=== PATIENT | female | born 1930 | race Two or more races ===

== ENCOUNTER 2018-11-21 22:29 | Emergency (ER) | payer MEDICARE ==
[2018-11-21 22:37] VITALS: TEMP 97.3
--- NOTE | 2018-11-21 22:52 | ED ---
SOB HPI - General Chief Complaint: Shortness of Breath Stated Complaint: FRANCINE Time Seen by Provider: 11/21/18 22:50 Source: patient, family, RN notes reviewed, old records reviewed Mode of arrival: ambulatory Limitations: no limitations - History of Present Illness Initial Comments: This is an 88-year-old female the ER for evaluation. Patient is a for e valuation shortness of breath. Patient has a prolonged history of smoking but denies formal diagnosis of COPD. Patient has no recent travel history or sick contacts no fevers does have increased cough or congestion, patient does say she can't catch her breath with persistent cough. No chest pain currently. No prior hospital admissions or similar evaluations for shortness of breath. No recent travel or sick to his travel history or sick contacts no swelling of lower extremities MD Complaint: shortness of breath, cough -: days(s) Severity: moderate Severity scale (1-10): 4 Quality: dull Consistency: constant Improves With: nothing Known History Of: COPD, asthma Context: recent URI Associated Symptoms: cough Treatments Prior to Arrival: none - Related Data Home Medications Medication Instructions Recorded Confirmed Aricept(Unknown Dose) 1 tab PO DAILY 11/21/18 11/21/18 Naproxen Sodium [Aleve] 220 mg PO BID 11/21/18 11/21/18 Previous Rx's Medication Instructions Recorded Albuterol Sulfate [Proair Hfa] 1 - 2 puff INHALATION Q4H PRN #1 11/22/18 inhaler Azithromycin [Zithromax] 500 mg PO DAILY #5 tab 11/22/18 predniSONE 50 mg PO DAILY #5 tab 11/22/18 Allergies Allergy/AdvReac Type Severity Reaction Status Date / Time No Known Allergies Allergy Unverified 11/21/18 23:02 Review of Systems ROS Statement: Those systems with pertinent positive or pertinent negative responses have been documented in the HPI. ROS Other: All systems not noted in ROS Statement are negative. Past Medical History Past Medical History: No Reported History Additional Past Medical History / Comment(s): dementia Past Surgical History: No Surgical Hx Reported Smoking Status: Never smoker Past Alcohol Use History: Occasional Past Drug Use History: None Reported General Exam Limitations: no limitations General appearance: alert, in no apparent distress Head exam: Present: atraumatic, normocephalic, normal inspection Eye exam: Present: normal appearance, PERRL, EOMI. Absent: scleral icterus, conjunctival injection, periorbital swelling ENT exam: Present: normal exam, mucous membranes moist Neck exam: Present: normal inspection. Absent: tenderness, meningismus, lymphadenopathy Respiratory exam: Present: rales, rhonchi, accessory muscle use, decreased breath sounds, prolonged expiratory. Absent: respiratory distress, wheezes, stridor Cardiovascular Exam: Present: normal rhythm, tachycardia, normal heart sounds. Absent: systolic murmur, diastolic murmur, rubs, gallop, clicks GI/Abdominal exam: Present: soft, normal bowel sounds. Absent: distended, tenderness, guarding, rebound, rigid Extremities exam: Present: normal inspection, full ROM, normal capillary refill. Absent: tenderness, pedal edema, joint swelling, calf tenderness Back exam: Present: normal inspection Neurological exam: Present: alert, oriented X3, CN II-XII intact Psychiatric exam: Present: normal affect, normal mood Skin exam: Present: warm, dry, intact, normal color. Absent: rash Course Vital Signs 11/21/18 11/21/18 11/21/18 22:34 23:08 23:22 Temperature 97.3 F L Pulse Rate 101 H 86 88 Respiratory 16 Rate Blood Pressure 213/93 O2 Sat by Pulse 92 L Oximetry 11/21/18 11/22/18 23:31 00:37 Temperature Pulse Rate 93 90 Respiratory 24 18 Rate Blood Pressure 144/66 129/73 O2 Sat by Pulse 99 99 Oximetry - Reevaluation(s) Reevaluation #1: 11/22/18 00:43 Medical records reviewed Reevaluation #2: 11/22/18 00:43 Patient's states her symptoms are completely resolved, she feels better like to be discharged home Reevaluation #3: 11/22/18 00:43 Patient did pass ambulatory pulse ox testing Medical Decision Making - Medical Decision Making 88 female the ER for evaluation shortness of breath cough and congestion likely underlying COPD no no formal diagnosis. Patient will be placed on antibiotics to cover for pneumonia steroids and given an inhaler to follow-up with primary care tomorrow, patient does not want hospital admission currently - Lab Data Result diagrams: 11/21/18 22:54 11/21/18 22:54 Lab Results 11/21/18 11/21/18 11/21/18 Range/Units 22:54 22:54 22:54 WBC 5.0 (3.8-10.6) k/uL RBC 3.27 L (3.80-5.40) m/uL Hgb 9.5 L (11.4-16.0) gm/dL Hct 31.2 L (34.0-46.0) % MCV 95.4 (80.0-100.0) fL MCH 29.0 (25.0-35.0) pg MCHC 30.4 L (31.0-37.0) g/dL RDW 15.6 H (11.5-15.5) % Plt Count 242 (150-450) k/uL Neutrophils % 67 % Lymphocytes % 17 % Monocytes % 7 % Eosinophils % 8 % Basophils % 0 % Neutrophils # 3.4 (1.3-7.7) k/uL Lymphocytes # 0.9 L (1.0-4.8) k/uL Monocytes # 0.3 (0-1.0) k/uL Eosinophils # 0.4 (0-0.7) k/uL Basophils # 0.0 (0-0.2) k/uL Hypochromasia Moderate PT (9.0-12.0) sec INR (<1.2) APTT (22.0-30.0) sec Sodium 143 (137-145) mmol/L Potassium 3.5 (3.5-5.1) mmol/L Chloride 107 (98-107) mmol/L Carbon Dioxide 27 (22-30) mmol/L Anion Gap 9 mmol/L BUN 21 H (7-17) mg/dL Creatinine 0.64 (0.52-1.04) mg/dL Est GFR (CKD-EPI)AfAm >90 (>60 ml/min/1.73 sqM) Est GFR (CKD-EPI)NonAf 81 (>60 ml/min/1.73 sqM) Glucose 193 H (74-99) mg/dL Calcium 9.1 (8.4-10.2) mg/dL Magnesium 1.9 (1.6-2.3) mg/dL Total Bilirubin 0.8 (0.2-1.3) mg/dL AST 14 (14-36) U/L ALT 14 (9-52) U/L Alkaline Phosphatase 101 (38-126) U/L Creatine Kinase <20 L (30-135) U/L Troponin I (0.000-0.034) ng/mL NT-Pro-B Natriuret Pep 546 pg/mL Total Protein 7.3 (6.3-8.2) g/dL Albumin 4.1 (3.5-5.0) g/dL 11/21/18 11/21/18 Range/Units 22:54 22:54 WBC (3.8-10.6) k/uL RBC (3.80-5.40) m/uL Hgb (11.4-16.0) gm/dL Hct (34.0-46.0) % MCV (80.0-100.0) fL MCH (25.0-35.0) pg MCHC (31.0-37.0) g/dL RDW (11.5-15.5) % Plt Count (150-450) k/uL Neutrophils % % Lymphocytes % % Monocytes % % Eosinophils % % Basophils % % Neutrophils # (1.3-7.7) k/uL Lymphocytes # (1.0-4.8) k/uL Monocytes # (0-1.0) k/uL Eosinophils # (0-0.7) k/uL Basophils # (0-0.2) k/uL Hypochromasia PT 10.2 (9.0-12.0) sec INR 0.9 (<1.2) APTT 24.9 (22.0-30.0) sec Sodium (137-145) mmol/L Potassium (3.5-5.1) mmol/L Chloride (98-107) mmol/L Carbon Dioxide (22-30) mmol/L Anion Gap mmol/L BUN (7-17) mg/dL Creatinine (0.52-1.04) mg/dL Est GFR (CKD-EPI)AfAm (>60 ml/min/1.73 sqM) Est GFR (CKD-EPI)NonAf (>60 ml/min/1.73 sqM) Glucose (74-99) mg/dL Calcium (8.4-10.2) mg/dL Magnesium (1.6-2.3) mg/dL Total Bilirubin (0.2-1.3) mg/dL AST (14-36) U/L ALT (9-52) U/L Alkaline Phosphatase (38-126) U/L Creatine Kinase (30-135) U/L Troponin I <0.012 (0.000-0.034) ng/mL NT-Pro-B Natriuret Pep pg/mL Total Protein (6.3-8.2) g/dL Albumin (3.5-5.0) g/dL - EKG Data -: EKG Interpreted by Me (EKG shows sinus rhythm rate of 95, FL 160, QRS 72, QTc 439) - Radiology Data Radiology results: report reviewed (Chest x-ray shows probable developing infiltrate), image reviewed Disposition Clinical Impression: Acute exacerbation of chronic obstructive airways disease, Acute bronchitis Disposition: HOME SELF-CARE Condition: Good Instructions (If sedation given, give patient instructions): Acute Bronchitis (ED) Prescriptions: predniSONE 50 mg PO DAILY #5 tab Albuterol Sulfate [Proair Hfa] 1 - 2 puff INHALATION Q4H PRN #1 inhaler PRN Reason: Shortness Of Breath Azithromycin [Zithromax] 500 mg PO DAILY #5 tab Is patient prescribed a controlled substance at d/c from ED?: No Referrals: Ham Srinivasan MD [Primary Care Provider] - 1-2 days
[2018-11-21] MEDS ORDERED: AZITHROMYCIN 500 MG in SODIUM CHLORIDE 0.9% 250 ML IVPB STA (22:55)
[2018-11-21] MEDS ORDERED: methylPREDNISolone SOD SUCCI 125 MG/2 ML VIAL IV STA (22:55)
[2018-11-21] MEDS ORDERED: IPRATROPIUM-ALBUTEROL 3 ML NEB INHALATION STA (22:55)
[2018-11-21] MEDS ORDERED: ENALAPRILAT 1.25 MG/ML 1 ML VIAL IVP STA (23:01)
[2018-11-21 23:25] LABS: Basophils % (A) 0 %; Eosinophils # (A) 0.4 k/uL (0-0.7); Eosinophils % (A) 8 %; HCT 31.2 % (34.0-46.0); HGB 9.5 gm/dL (11.4-16.0); Hypochromasia Moderate; Lymphocytes # (A) 0.9 k/uL (1.0-4.8); Lymphocytes % (A) 17 %; MCHC 30.4 g/dL (31.0-37.0); MCV 95.4 fL (80.0-100.0); Mean Platelet Volume 7.2; Monocytes # (A) 0.3 k/uL (0-1.0); Monocytes % (A) 7 %; Neutrophils # (A) 3.4 k/uL (1.3-7.7); Neutrophils % (A) 67 %; Platelet Count 242 k/uL (150-450); RBC 3.27 m/uL (3.80-5.40); RDW 15.6 % (11.5-15.5)
[2018-11-21 23:34] LABS: ALT 14 U/L (9-52); AST 14 U/L (14-36); African American GFR (CKD) >90 (>60 ml/min/1.73 sqM); Albumin 4.1 g/dL (3.5-5.0); Alkaline Phosphatase 101 U/L (38-126); Anion Gap 9 mmol/L; Blood Urea Nitrogen 21 mg/dL (7-17); Calcium 9.1 mg/dL (8.4-10.2); Carbon Dioxide 27 mmol/L (22-30); Chloride 107 mmol/L (98-107); Creatine Kinase <20 U/L (30-135); Glucose 193 mg/dL (74-99); Magnesium 1.9 mg/dL (1.6-2.3); Potassium 3.5 mmol/L (3.5-5.1); Sodium 143 mmol/L (137-145); Total Bilirubin 0.8 mg/dL (0.2-1.3); Total Protein 7.3 g/dL (6.3-8.2)
[2018-11-21 23:36] LABS: INR 0.9 (<1.2); Partial Thromboplastin Time 24.9 sec (22.0-30.0); Prothrombin Time 10.2 sec (9.0-12.0)
--- NOTE | 2018-11-22 00:07 | XR ---
EXAM: XR Chest, 1 View CLINICAL HISTORY: ITS.REASON XR Reason: sob TECHNIQUE: Frontal view of the chest. COMPARISON: No relevant prior studies available. FINDINGS: Lungs: Bilateral lung opacities, possible scarring/atelectasis. Pleural space: No significant pleural effusion or pneumothorax. Heart: Unremarkable. Mediastinum: Prominent mediastinal silhouette, may be related to tortuous/ectatic aorta or other etiology. Right hilar opacity. Bones/joints: Age-indeterminate right rib deformities. IMPRESSION: 1. Bilateral lung opacities, possible scarring/atelectasis. Correlate clinically regarding developing infiltrate. 2. Right hilar opacity. Differential considerations include adenopathy, mass, or consolidation. CT may be considered for further evaluation.
[2018-11-22] MEDS ORDERED: cefTRIAXone IN SWFI 1,000 MG/10 ML SYRINGE IVP STA (00:41)
[2018-11-22] MEDS ORDERED: IPRATROPIUM-ALBUTEROL 3 ML NEB INHALATION STA (00:51)
[2018-11-22 01:29] VITALS: BP 140/86; PULSE 77; RESP 20
== END 2018-11-22 01:29 | disposition home or self-care (01) ==
LOC: EC 22:29
DX: J44.1 Chronic obstructive pulmonary disease with (acute) exacerbation (principal); J20.9 Acute bronchitis, unspecified; F03.90 Unspecified dementia, unspecified severity, without behavioral disturbance, psychotic disturbance, mood disturbance, and anxiety; Z79.899 Other long term (current) drug therapy; Z79.1 Long term (current) use of non-steroidal anti-inflammatories (NSAID); Z87.891 Personal history of nicotine dependence
CPT/HCPCS: 36415; 94640 ×2; 93005; 83880; 80053; 82550; 83735; 84484; 85025; 85610; 85730; 87040; 71045; 99285; 96365; 96375 ×3; J2930; J0456; J0696